=== PATIENT | female | born 1960 | race Two or more races ===

== ENCOUNTER → 2020-07-17 | Outpatient (CLI) | payer OTHER ==
[~2020-07-17] MED LIST: MACROBID 100 M100 MG PO; ULTRACET PO
== END | disposition home or self-care (01) ==
LOC: RAD 08:05
PROVIDERS: ATTEND Obstetrics & Gynecology Gynecology
DX: R07.9 Chest pain, unspecified (principal)

== ENCOUNTER 2020-07-24 06:33 | Day surgery (SDC) | payer OTHER ==
[2020-07-24] MEDS ORDERED: ULTRACET PO (09:52)
[2020-07-24] MEDS ORDERED: MACROBID 100 M100 MG PO (09:53)
== END 2020-07-24 14:00 | disposition home or self-care (01) ==
LOC: CIR.AMB 06:33
PROVIDERS: ATTEND Obstetrics & Gynecology Gynecology
DX: N39.3 Stress incontinence (female) (male) (principal); Z20.822 Contact with and (suspected) exposure to COVID-19
CPT/HCPCS: 57288; C1771